=== PATIENT | female | born 1975 | race Caucasian/White ===

== ENCOUNTER 2019-03-12 22:04 | Emergency (ER) | payer SELFPAY ==
[~2019-03-12] VITALS: Ht 157.5 cm; Wt 60.0 kg
[2019-03-12 22:09] VITALS: Ht 157.5 cm; Wt 60.0 kg
[2019-03-13] MEDS ORDERED: KETOROLAC 60 MG INJ IM STA (01:00)
[2019-03-13] MEDS ORDERED: LORAZEPAM 0.5 MG TAB PO ONE (01:00)
[2019-03-13] MEDS ORDERED: LORA-441 PO (01:50)
[2019-03-13] MEDS ORDERED: IBUP800T48 PO (01:50)
[2019-03-13 02:12] VITALS: BP 110/70; PULSE 84; RESP 16
--- NOTE | 2019-03-15 14:19 | ERD ---
ER Documentation Chief Complaint Chief Complaint ANXIETY REACTION, HYPERVENTILATION S/P ARGUMENT WITH DAUGHTER HPI History of Present Illness: 43-year-old female who denies a past medical history coming in today due to panic attack after getting into an argument with her daughter. Patient reports hitting her left hand and pain. At home pharmacological/nonpharmacological treatment for symptoms: Denies Denies social concerns; Denies recent foreign travel ROS All systems reviewed and are negative except as per history of present illness. Medications Home Meds Active Scripts Lorazepam* (Ativan*) 0.5 Mg Tablet, 0.5 MG PO DAILY PRN for ANXIETY, #5 TAB Take 1 pill when you experience situational anxiety; 1 pill daily max. Prov:LENORE SHELLEYA V BROADCAST TRAFFIC COORDINATOR 03/13/19 Ibuprofen* (Motrin*) 800 Mg Tab, 800 MG PO Q6H PRN for PAIN AND/OR INFLAMMATION, #30 TAB Prov:JENNIFER SHELLEY V BROADCAST TRAFFIC COORDINATOR 03/13/19 Allergies Allergies: Coded Allergies: No Known Allergy (Unverified , 03/12/19) PMhx/Soc Medical and Surgical Hx: pt denies Medical Hx, pt denies Surgical Hx Hx Psychiatric Problems: Yes (Panic attacks) Hx Miscellaneous Medical Probl: No Hx Alcohol Use: No Hx Substance Use: No Hx Tobacco Use: No Smoking Status: Never smoker FmHx Family History: diabetes, coronary disease Physical Exam Vitals Vital Signs Date Temp Pulse Resp B/P (MAP) Pulse Ox O2 O2 Flow FiO2 Time Delivery Rate 03/13/19 98.4 84 16 110/70 99 Room Air 02:12 (83) 03/12/19 98.6 88 16 123/90 96 22:09 (101) Physical Exam ED COURSE: ED course includes a thorough examination and history. The patient was stable throughout ED course. I kept the patient and/or family informed of laboratory and diagnostic imaging results throughout the ED course. LABS: [] MEDICATIONS GIVEN IN ER: [None.] Patient tolerated medication well with no adverse reactions. Patient reported improvement in pain. DIAGNOSTIC IMAGING: Read by radiologist. []. PROCEDURES: None. MEDICAL DECISION MAKING: Low suspicion for life-threatening medical emergency. Otherwise healthy patient presenting with constellation of symptoms likely representing uncomplicated [x] as characterized by history, physical exam findings [, radiologic/lab findings]. Patient reassessment @ []: Patient hemodynamically stable. No respiratory distress, otherwise relatively well appearing and nontoxic. Disposition given. Patient educated on diagnoses, prescriptions, follow-up care, return precautions. Strict return precautions given for worsening condition; questions answered discharge. Patient verbalizes understanding of discharge instructions. PRESCRIPTIONS FOR HOME: []. DISPOSITION: DISCHARGE At this time, patient is stable for discharge and outpatient management. I have instructed the patient to follow-up with his/her primary care physician in 1-2 days. I have discussed with the patient the possibility of needing to see a specialist for further workup and imaging studies if symptoms persist. I have instructed the patient to promptly return to the ER for any new or worsening symptoms including increased pain, fever, nausea, vomiting, weakness or LOC. The patient and/or family expressed understanding of and agreement with this plan. All questions were answered. Home care instructions were provided. DISCLAIMER: Inadvertent spelling and grammatical errors are likely due to EHR/dictation software use and do not reflect on the overall quality of patient care. Also, please note that the electronic time recorded on this note does not necessarily reflect the actual time of the patient encounter. Results 24 hrs Laboratory Tests Test 03/13/19 01:29 POC Beta HCG, Qualitative NEGATIVE Current Medications Medications Dose Sig/Joanna Start Time Status Last (Trade) Ordered Route PRN Stop Time Admin Dose Reason Admin Lorazepam 0.5 mg ONCE ONCE 03/13/19 DC 03/13/19 (Ativan) PO 01:00 03/13/19 01:31 01:06 Ketorolac 60 mg ONCE STAT 03/13/19 DC 03/13/19 Tromethamine IM 01:00 03/13/19 02:15 (Toradol) 01:06 Procedures/MDM ED COURSE: ED course includes a thorough examination and history. The patient was stable throughout ED course. I kept the patient and/or family informed of laboratory and diagnostic imaging results throughout the ED course. LABS: Urine negative MEDICATIONS GIVEN IN ER: Ketorolac, lorazepam Patient tolerated medication well with no adverse reactions. Patient reported improvement in pain. DIAGNOSTIC IMAGING: Read by radiologist. IMPRESSION: No definite acute bony abnormality. RPTAT: HLBE Physician Alex Date Time Electronically viewed and signed by Radha Lagunas Physician on 03/13/2019 01:43 PROCEDURES: None. MEDICAL DECISION MAKING: Low suspicion for life-threatening medical emergency. Otherwise healthy patient presenting with constellation of symptoms likely representing uncomplicated panic attack, anxiety, finger injury as characterized by history, physical exam findings, radiology findings. Patient reassessment @ 0152: Results discussed. Orders placed for finger splint patient hemodynamically stable. No respiratory distress, otherwise relatively well appearing and nontoxic. Disposition given. Patient educated on diagnoses, prescriptions, follow-up care, return precautions. Strict return precautions given for worsening condition; questions answered discharge. Patient verbalizes understanding of discharge instructions. PRESCRIPTIONS FOR HOME: Lorazepam, ibuprofen DISPOSITION: DISCHARGE At this time, patient is stable for discharge and outpatient management. I have instructed the patient to follow-up with his/her primary care physician in 1-2 days. I have discussed with the patient the possibility of needing to see a specialist for further workup and imaging studies if symptoms persist. I have instructed the patient to promptly return to the ER for any new or worsening symptoms including increased pain, fever, nausea, vomiting, weakness or LOC. The patient and/or family expressed understanding of and agreement with this plan. All questions were answered. Home care instructions were provided. DISCLAIMER: Inadvertent spelling and grammatical errors are likely due to EHR/dictation software use and do not reflect on the overall quality of patient care. Also, please note that the electronic time recorded on this note does not necessarily reflect the actual time of the patient encounter. Departure Diagnosis: Primary Impression: Panic attack Additional Impression: Finger injury Condition: Stable Patient Instructions: Sprain Finger Referrals: [facility] () Usted se piedra hecho un examen mdico de control que le indica que no est en maggi condicin que requiera tratamiento urgente en el Departamento de Emergencia. Un estudio ms profundo y el tratamiento de ruano condicin pueden esperar sin ningn riesgo hasta que usted sea atendida/o en el consultorio de ruano mdico o maggi clnica. Es responsabilidad suya arreglar maggi josé para el seguimiento del sylvain. MANEJO DE CONDICIONES NO URGENTES EN EL FUTURO 1) Si usted tiene un mdico de atencin primaria: Usted debera llamar a ruano mdico de atencin primaria antes de venir al departamento de emergencia. Despus de las horas de consultorio, ruano doctor o ruano asociado/a est disponible por telfono. El mdico o enfermero de beba en el servicio telefnico puede asesorarle por angel medio para atender el problema, o sylvain contrario se puede programar maggi josé. 2) Si usted no tiene un mdico de atencin primaria: Llame al mdico o clnica de referencia que aparece abajo donaldo las horas de consultorio para hacer maggi josé para que le vean. CLINICAS: [facility] [phone] [facility] [phone] [facility] [phone] [address] [facility] [phone] [address] [facility] [facility] [facility] [phone] [address] [facility] [phone] [address] [facility] [facility] () Usted se piedra hecho un examen mdico de control que le indica que no est en maggi condicin que requiera tratamiento urgente en el Departamento de Emergencia. Un estudio ms profundo y el tratamiento de ruano condicin pueden esperar sin ningn riesgo hasta que usted sea atendida/o en el consultorio de ruano mdico o maggi clnica. Es responsabilidad suya arreglar maggi josé para el seguimiento del sylvain. MANEJO DE CONDICIONES NO URGENTES EN EL FUTURO 1) Si usted tiene un mdico de atencin primaria: Usted debera llamar a ruano mdico de atencin primaria antes de venir al departamento de emergencia. Despus de las horas de consultorio, ruano doctor o ruano asociado/a est disponible por telfono. El mdico o enfermero de beba en el servicio telefnico puede asesorarle por angel medio para atender el problema, o sylvain contrario se puede programar maggi josé. 2) Si usted no tiene un mdico de atencin primaria: Llame al mdico o condado institucions de referencia que aparece abajo donaldo las horas de consultorio para hacer maggi josé para que le vean. SI USTED NO PUEDE PAGAR PARA EDUARD UN MEDICO puede ir a: [facility] [address] [place] [address] [facility] [address] [place] [address] [facility] [address] [place] [address] [facility] [address] [place], [place] [id number] Additional Instructions: Google Translate utilizado para la traduccin de las siguientes lneas, por favor, disculpe los errores. Muchas nasra por permitirnos participar en ruano cuidado. Ruano mayi y seguridad es nuestra principal prioridad en [facility]. Es importante leer todas las instrucciones de lake y la educacin que se proporcionan en ruano paquete de lake. Llame a ruano mdico de atencin primaria MAANA para maggi josé donaldo los prximos 2 a 4 roque y lleve toda la informacin y los medicamentos recetados. Llene las recetas y siga exactamente las instrucciones de la etiqueta. --Ibuprofeno es un medicamento que ayuda con el dolor / inflamacin. En la dosis de 600 a 800 mg, esto ayudar con la inflamacin / hinchazn. [place] vikas medicamento segn las indicaciones. -Lorazepam es un medicamento para la ansiedad. [place] 1 pldora en sylvain de que experimente un episodio de pnico. Si los sntomas empeoran y ruano proveedor no est disponible, regrese i nmediatamente al Departamento de Emergencias. ----- Google Translate used for translation of following lines, please excuse errors. Thank you very much for allowing us to participate in your care. Your health and safety is our top priority at [facility]. It is important to read all discharge instructions and education provided in your discharge packet. Call your primary care doctor TOMORROW for an appointment during the next 2-4 days and bring all the information and medications prescribed. Have prescriptions filled and follow precisely the directions on the label. --Ibuprofen is a medication that will help with pain/inflammation. At the dosage of 600 to 800 mg, this will help with inflammation/swelling. Take this medication as prescribed. -Lorazepam is a anxiety medication. Take 1 pill in the event that you experience a panic episode. If the symptoms get worse and your provider is unavailable, return to the Emergency Department immediately. JENNIFER SHELLEY NP Mar 15, 2019 14:19
== END 2019-03-13 02:12 | disposition home or self-care (01) ==
LOC: FTE 22:04
DX: S69.91XA Unspecified injury of right wrist, hand and finger(s), initial encounter (principal); F41.0 Panic disorder [episodic paroxysmal anxiety]; Y04.8XXA Assault by other bodily force, initial encounter; Y92.9 Unspecified place or not applicable
CPT/HCPCS: 29130; 73140; 81025; 99283; J1885